=== PATIENT | female | born 1995 | race Native Hawaiian/Other Pacific Islander ===

== ENCOUNTER 2019-12-26 10:00 | Inpatient (IN) | payer MEDICAID ==
[~2019-12-26] VITALS: Ht 30.5 cm; Wt 0.5 kg
[~2019-12-26 10:00] MED LIST: PREN-96 PO
[2019-12-26] MEDS ORDERED: LACT. RINGERS/OXYTOCIN 20UNITS 1,000 ML IV SCH (10:24)
[2019-12-26] MEDS ORDERED: LACTATED RINGER'S 1,000 ML IV SCH (10:24)
[2019-12-26] MEDS ORDERED: LIDOCAINE 2%HCL (LOCAL ANESTH.) INJ 20ML MDV ID PRN (10:30)
[2019-12-26] MEDS ORDERED: PHISODERM TOP SOLN 240ML BTL TOP PRN (10:30)
[2019-12-26] MEDS ORDERED: WITCH HAZEL-GLYCERIN PAD TOP PRN (10:30)
[2019-12-26] MEDS ORDERED: DERMOPLAST 60ML BOTTLE TOP PRN (10:30)
[2019-12-26] MEDS ORDERED: PENICILLIN G POT 5MIL/D5 50ML 50 ML IV ONE (10:30)
[2019-12-26] MEDS ORDERED: NALBUPHINE HCL 10 MG/1ml INJECTION IV PRN (10:30)
[2019-12-26 11:28] LABS: Basophils # (auto) 0 10 ^3/uL (0-0.2); Basophils % (auto) 0.2 % (0.0-2.0); Eosinophils # (auto) 0 10 ^3/uL (0-0.8); Eosinophils % (auto) 0.3 % (0.0-7.0); Hematocrit 41.9 % (36.0-46.0); Hemoglobin 13.8 g/dL (12.2-16.2); Lymphocytes # (auto) 1.4 10 ^3/uL (0.4-5.4); Lymphocytes % (auto) 11.7 % (10.0-50.0); Mean Corpuscular Hemoglobin 30.7 pg (28.0-32.0); Mean Corpuscular Volume 92.9 fL (80.0-100.0); Monocytes # (auto) 0.6 10 ^3/uL (0-1.3); Monocytes % (auto) 4.9 % (0.0-12.0); Neutrophils # (auto) 9.6 10 ^3/uL (1.6-8.6); Neutrophils % (auto) 82.9 % (37.0-80.0); Nucleated Red Blood Cells % 0.1 %; Platelet Count (auto) 223 10^3/uL (140-450); Red Blood Cells 4.51 10^6/uL (4.0-5.20); White Blood Cell 11.5 10^3/uL (4.4-10.8)
[2019-12-26 11:42] LABS: INR 0.89 (0.9-1.15); Partial Thromboplastin Time 27.1 sec (23.0-31.2)
[2019-12-26 11:45] LABS: Calcium 9.5 mg/dL (8.5-10.1); Potassium 3.9 mmol/L (3.5-5.1)
[2019-12-26 11:51] LABS: Albumin 3.1 g/dL (3.4-5.0); BUN/Creatinine Ratio 20.3; Bilirubin, Total 0.3 mg/dL (0.2-1.0); Uric Acid 5.2 mg/dL (2.6-6.0)
[2019-12-26 12:23] LABS: Urine Bacteria NONE SEEN /hpf (None Seen); Urine Blood Negative /uL (Negative); Urine Mucus FEW (None Seen); Urine Specific Gravity 1.026 (1.001-1.035); Urine WBC 1 /hpf (0 - 5)
[2019-12-26 12:31] LABS: Alcohol, Urine < 3.0 mg/dL (0-10); Amphetamine Screen, Urine NEGATIVE (NEGATIVE); Barbiturate Scree,Urine NEGATIVE (NEGATIVE); Benzodiazephine Screen, Urine NEGATIVE (NEGATIVE); Cannabinoid Screen, Urine NEGATIVE (NEGATIVE); Cocaine Screen, Urine NEGATIVE (NEGATIVE); Opiate Scree,Urine NEGATIVE (NEGATIVE); Phencyclidine Screen, Urine NEGATIVE (NEGATIVE)
[2019-12-26] MEDS: IBUPROFEN 600 MG TAB PO PRN ×2 (14:21→18:58)
[2019-12-26] MEDS ORDERED: PENICILLIN G POTASSIUM 2,500,000 UNITS in D5W 5% 50 ML IV SCH (14:30)
--- NOTE | 2019-12-26 15:00 | NUR ---
Patient ambulated with standby assist of RN to bathroom. On pad small amount of bright red blood, no clots noted. Educated on pericare. Verbalized understanding. Demonstrated proper technique. Partial bath given. Patient unable to void at this time. Educated on need to call for assistance for next two voids. Verbalized understanding. New gown given. Complete linen change on bed. Patient ambulated to restroom with standby assist. Tolerated well. No distress noted. Vital signs taken, see interventions. Cumulative QBL 150ml.
[2019-12-26 15:07] VITALS: BP 114/56
--- NOTE | 2019-12-26 16:00 | NUR ---
Fundal massage performed. Firm with massage. Moderate amount of blood noted upon massage. Bleeding stopped after massage. Assisted patient to bathroom. Patient able to void 100ml clear yellow urine without difficulty. Pericare performed. Ambulated back to bathroom with steady gait. Standby assist of BITA. Denies headache, blurred vision, dizziness, weakness, diaphoresis or lightheadedness. Encouraged oral hydration. BP 118/58 HR 74. Pain 0/10 Addendum: 12/26/19 at 1632 by LAXMI MAGAÑA RN peripad, underwear weighed. 100ml.
--- NOTE | 2019-12-26 16:40 | NUR ---
Dr Jessica called. Informed of bleeding noted of 100ml with fundal massage and 50ml noted in hat before void. Total of 150ml. Verbalized understanding. Received orders for cytotec 200mcg once, and cytotec 600mcg NH once.
[2019-12-26] MEDS ORDERED: miSOPROStol 50 MCG per PRE-CUT 1/2 TAB SL ONE (16:45)
[2019-12-26] MEDS ORDERED: miSOPROStol 100 mcg TAB ONE (16:57)
[2019-12-26] MEDS ORDERED: miSOPROStol 50 MCG per PRE-CUT 1/2 TAB PR ONE (17:00)
--- NOTE | 2019-12-26 17:00 | NUR ---
Cytotec order: Pharmacy called regarding need for 100mcg tabs not 50mcg tablets (50mcg tablets are for inductions, this order is for increased bleeding). Stated they are unable to change the order at this time. Override performed, administered medication as ordered with 100mcg tablets. Unable to place not under emar due to no administration note tab available.
[2019-12-26 18:30] VITALS: BP 117/55
--- NOTE | 2019-12-26 23:10 | NUR ---
Lawrence Palm CNM at nurses station SBAR given including H&H, EBL/ EBL Verbal orders received for repeat H& H for 0200 on 12/27/19
[2019-12-26 23:15] VITALS: BP 100/57
[2019-12-27 03:05] LABS: Hematocrit 36.5 % (36.0-46.0); Hemoglobin 12.3 g/dL (12.2-16.2)
[2019-12-27 03:30] VITALS: BP 102/57
[2019-12-27 07:15] VITALS: BP 116/77
--- NOTE | 2019-12-27 08:02 | NUR ---
Fundal massage performed. Large softball size clot measuring 50mL noted after fundal massage. BP 116/77 HR 75, denies headache, blurred vision, dizziness, fatigue, diaphoresis, coloring appropriate. Dr Minor called. Informed of above information. Verbalized understanding. Stated to monitor and keep patient today. No discharge until tomorrow. Addendum: 12/27/19 at 0806 by LAXMI MAGAÑA RN Amended: Links added.
[2019-12-27 11:00] VITALS: BP 138/77
[2019-12-27 15:30] VITALS: BP 128/63
[2019-12-27 19:25] VITALS: BP 116/52
--- NOTE | 2019-12-27 19:30 | NUR ---
Abdiel BHATIA CNM AT BEDSIDE. FULL SBAR GIVEN, ASSESSMENT COMPLETED BY CNM, ORDERS RECEIVED TO DC PT HOME AT THIS TIME.
--- NOTE | 2019-12-27 20:16 | NUR ---
Discharge: Discharge instructions given as ordered. Pt encouraged to follow up with [facility] as instructed. All questions and concerns addressed. Patient verbalized understanding. Medication reconciliation completed and copy given to patient. All required/requested vaccines given and copies of vaccinations given to patient. Patient encouraged to prepare to depart unit.
--- NOTE | 2019-12-27 20:27 | NUR ---
IV removal IV DC'd for dc home with clean sterile technique, catheter fully intact. Pressure dressing applied to site. Patient tolerated well.
--- NOTE | 2019-12-27 20:47 | NUR ---
Discharge: Patient taken to vehicle via steady ambulation with all personal belongings, accompanied by staff and family member. No distress noted at time of departure, no adverse changes in status since initial assessment.
[2019-12-28 07:06] LABS: RPR Non Reactive (Non Reactive)
[2019-12-28 08:06] LABS: Rubella Antibodies, IgG 2.89 index (Immune >0.99)
== END 2019-12-27 20:47 | disposition home or self-care (01) | DRG 560 ==
LOC: LDRP 10:00 → OBSVTOIN 10:10 → LDRP 12-27 08:56
PROVIDERS: ADMIT Specialist; ATTEND Specialist
PROC: 10E0XZZ Delivery of Products of Conception, External Approach (ICD-10-PCS; principal; 2019-12-26)
PROC: 0UQGXZZ Repair Vagina, External Approach (ICD-10-PCS; 2019-12-26)
DX: O77.0 Labor and delivery complicated by meconium in amniotic fluid (principal); Z37.0 Single live birth; Z3A.39 39 weeks gestation of pregnancy; O71.4 Obstetric high vaginal laceration alone
CPT/HCPCS: 36415; 59025; 59409; 80053; 80307; 81001; 81002; 84112; 84550; 85014; 85018; 85025; 85610; 85730; 86592; 86703; 86762; 86850; 86900; 86901; 87340; 96365; 96366; G0378; J2590; J7060

== ENCOUNTER 2021-05-22 08:46 | Emergency (ER) | payer MEDICAID ==
[~2021-05-22] VITALS: Ht 157.5 cm; Wt 60.3 kg
[2021-05-22 08:51] VITALS: BP 102/55
== END 2021-05-22 13:44 | disposition left against medical advice (07) ==
LOC: ER 08:46
DX: O26.892 Other specified pregnancy related conditions, second trimester (principal); A53.9 Syphilis, unspecified; Z3A.19 19 weeks gestation of pregnancy

== ENCOUNTER 2021-05-23 18:04 | Emergency (ER) | payer MEDICAID ==
[~2021-05-23] VITALS: Ht 157.5 cm; Wt 60.3 kg
[2021-05-23 18:45] VITALS: BP 108/54
[2021-05-23] MEDS ORDERED: PENICILLIN G BENZ 1200000 UNITS/2 ML SYRG IM ONE (21:30)
== END 2021-05-23 22:01 | disposition home or self-care (01) ==
LOC: ER 18:05
DX: O98.112 Syphilis complicating pregnancy, second trimester (principal); A53.0 Latent syphilis, unspecified as early or late; Z3A.19 19 weeks gestation of pregnancy
CPT/HCPCS: 96372; 99283; J0561

== ENCOUNTER 2021-05-30 17:11 | Emergency (ER) | payer MEDICAID ==
[~2021-05-30] VITALS: Ht 157.5 cm; Wt 59.0 kg
[2021-05-30] MEDS ORDERED: PENICILLIN G BENZ 1200000 UNITS/2 ML SYRG IM ONE (17:45)
[2021-05-30 17:48] VITALS: BP 109/79
== END 2021-05-30 18:21 | disposition home or self-care (01) ==
LOC: ER 17:13
DX: O98.112 Syphilis complicating pregnancy, second trimester (principal); Z79.899 Other long term (current) drug therapy; Z3A.20 20 weeks gestation of pregnancy
CPT/HCPCS: 96372; 99283; J0561

== ENCOUNTER 2021-06-06 17:50 | Emergency (ER) | payer MEDICAID ==
[~2021-06-06] VITALS: Ht 157.5 cm; Wt 59.0 kg
[2021-06-06 18:12] VITALS: BP 107/63
[2021-06-06] MEDS ORDERED: PENICILLIN G BENZ 1200000 UNITS/2 ML SYRG IM ONE (19:15)
== END 2021-06-06 19:14 | disposition home or self-care (01) ==
LOC: ER 18:05
DX: O98.119 Syphilis complicating pregnancy, unspecified trimester (principal); Z79.899 Other long term (current) drug therapy; Z3A.00 Weeks of gestation of pregnancy not specified
CPT/HCPCS: 96372; 99283; J0561

== ENCOUNTER 2021-09-12 10:20 | Observation (INO) | payer MEDICAID ==
[~2021-09-12] VITALS: Ht 162.6 cm; Wt 59.0 kg
[2021-09-12] MEDS ORDERED: TERBUTALINE SULFATE 1 MG/ML 1ML VIAL SC SCH (11:30)
[2021-09-12] MEDS ORDERED: BETAMETHASONE ACET (30mg/5ml) 5ml Vial 6mg/ml IM ONE (11:30)
[2021-09-12] MEDS ORDERED: NIF10C PO (12:25)
== END 2021-09-12 12:44 | disposition home or self-care (01) ==
LOC: LDRP 10:20
PROVIDERS: ADMIT Obstetrics & Gynecology; ATTEND Obstetrics & Gynecology
DX: O60.03 Preterm labor without delivery, third trimester (principal); Z3A.35 35 weeks gestation of pregnancy
CPT/HCPCS: 59025; 81002; 94760; 96372; G0378; J0702; J3105

== ENCOUNTER 2021-09-13 11:15 | Observation (INO) | payer MEDICAID ==
[~2021-09-13] VITALS: Ht 167.6 cm; Wt 63.0 kg
[~2021-09-13 11:15] MED LIST changes: +NIF10C PO
[2021-09-13] MEDS ORDERED: BETAMETHASONE ACET (30mg/5ml) 5ml Vial 6mg/ml IM ONE (12:45)
[2021-09-13] MEDS ORDERED: NIFEdipine 10 MG CAP PO ONE (13:30)
== END 2021-09-13 14:37 | disposition home or self-care (01) ==
LOC: LDRP 12:30
PROVIDERS: ADMIT Obstetrics & Gynecology; ATTEND Obstetrics & Gynecology
DX: O60.03 Preterm labor without delivery, third trimester (principal); O26.893 Other specified pregnancy related conditions, third trimester; R10.30 Lower abdominal pain, unspecified; O62.9 Abnormality of forces of labor, unspecified; Z3A.35 35 weeks gestation of pregnancy
CPT/HCPCS: 59025; 81002; 96372; G0378

== ENCOUNTER 2021-09-19 09:18 | Observation (INO) | payer MEDICAID | END 2021-09-19 12:53 | disposition home or self-care (01) | LOC: LDRP 12:16 | PROVIDERS: ADMIT Obstetrics & Gynecology; ATTEND Obstetrics & Gynecology | DX: O60.03 Preterm labor without delivery, third trimester (principal); O62.9 Abnormality of forces of labor, unspecified; O26.893 Other specified pregnancy related conditions, third trimester; N89.8 Other specified noninflammatory disorders of vagina; Z3A.36 36 weeks gestation of pregnancy | CPT/HCPCS: 59025; 81002; G0378 ==

== ENCOUNTER 2021-09-26 15:00 | Observation (INO) | payer MEDICAID ==
[~2021-09-26 15:00] MED LIST changes: -NIF10C PO
== END 2021-09-26 19:02 | disposition home or self-care (01) ==
LOC: LDRP 15:00
PROVIDERS: ADMIT Obstetrics & Gynecology; ATTEND Obstetrics & Gynecology
DX: O62.9 Abnormality of forces of labor, unspecified (principal); O34.63 Maternal care for abnormality of vagina, third trimester; N89.8 Other specified noninflammatory disorders of vagina; Z3A.37 37 weeks gestation of pregnancy
CPT/HCPCS: 59025; 76818; 81002; 94760; G0378

== ENCOUNTER 2021-09-27 10:40 | Inpatient (IN) | payer MEDICAID ==
[~2021-09-27] VITALS: Ht 157.5 cm; Wt 63.5 kg
[2021-09-27] MEDS ORDERED: LACT. RINGERS/OXYTOCIN 20UNITS 500 ML IV ONE ×2 (11:00→11:30)
[2021-09-27] MEDS ORDERED: PROMETHAZINE HCL 25 MG/ML 1ML IV PRN (11:00)
[2021-09-27] MEDS ORDERED: LACTATED RINGER'S 1,000 ML IV SCH (11:00)
[2021-09-27] MEDS ORDERED: DERMOPLAST 60ML BOTTLE TOP PRN (11:00)
[2021-09-27] MEDS ORDERED: BUTORPHANOL TARTRATE 2 MG/1 ML VIAL IV PRN ×2 (11:00)
[2021-09-27] MEDS ORDERED: LIDOCAINE 2%HCL (LOCAL ANESTH.) INJ 10ml MDV IJ PRN (11:00)
[2021-09-27] MEDS ORDERED: WITCH HAZEL-GLYCERIN PAD TOP PRN (11:00)
[2021-09-27] MEDS ORDERED: PHISODERM TOP SOLN 240ML BTL TOP PRN (11:00)
[2021-09-27 11:23] LABS: Basophils # (auto) 0.1 10 ^3/uL (0-0.2); Basophils % (auto) 0.8 % (0.0-2.0); Eosinophils # (auto) 0.1 10 ^3/uL (0-0.8); Eosinophils % (auto) 0.4 % (0.0-7.0); Hematocrit 40.1 % (36.0-46.0); Hemoglobin 13.3 g/dL (12.2-16.2); Lymphocytes # (auto) 2.3 10 ^3/uL (0.4-5.4); Lymphocytes % (auto) 17.9 % (10.0-50.0); Mean Corpuscular Hgb Conc. 33.1 g/dL (32.0-36.0); Mean Corpuscular Volume 87.5 fL (80.0-100.0); Monocytes # (auto) 0.7 10 ^3/uL (0-1.3); Monocytes % (auto) 5.3 % (0.0-12.0); Neutrophils # (auto) 9.9 10 ^3/uL (1.6-8.6); Neutrophils % (auto) 75.6 % (37.0-80.0); Red Blood Cells 4.58 10^6/uL (4.0-5.20); Red Cell Distribution Width 13.6 % (11.8-14.3); White Blood Cell 13.1 10^3/uL (4.4-10.8)
[2021-09-27 11:43] LABS: INR 0.9 (0.9-1.15); Partial Thromboplastin Time 26.8 sec (23.6-33.0)
[2021-09-27 11:47] LABS: Urine Bacteria NONE SEEN /hpf (None Seen); Urine Blood Negative /uL (Negative); Urine Mucus FEW (None Seen); Urine Specific Gravity 1.018 (1.001-1.035); Urine WBC 1 /hpf (0 - 5)
[2021-09-27 11:55] LABS: Albumin 2.8 g/dL (3.4-5.0); BUN/Creatinine Ratio 11.1; Calcium 9.4 mg/dL (8.5-10.1); Potassium 4.1 mmol/L (3.5-5.1)
[2021-09-27 11:57] LABS: Amphetamine Screen, Urine NEGATIVE (NEGATIVE); Barbiturate Scree,Urine NEGATIVE (NEGATIVE); Benzodiazephine Screen, Urine NEGATIVE (NEGATIVE); Cannabinoid Screen, Urine NEGATIVE (NEGATIVE); Cocaine Screen, Urine NEGATIVE (NEGATIVE); Opiate Scree,Urine NEGATIVE (NEGATIVE); Phencyclidine Screen, Urine NEGATIVE (NEGATIVE)
[2021-09-27 12:00] LABS: Bilirubin, Total 0.2 mg/dL (0.2-1.0); Total Protein 6.8 g/dL (6.4-8.2)
[2021-09-27] MEDS ORDERED: ACETAMINOPHEN 325 MG TAB PO PRN (12:45)
[2021-09-27] MEDS ORDERED: ONDANSETRON ODT 4 MG TAB PO PRN (12:45)
[2021-09-27] MEDS ORDERED: IBUPROFEN 600 MG TAB PO PRN (12:45)
[2021-09-27] MEDS ORDERED: METHYLERGONOVINE MALEATE 0.2 MG/ML AMP IM PRN (13:00)
[2021-09-27] MEDS ORDERED: miSOPROStol 100 mcg TAB ONE (13:11)
[2021-09-27] MEDS ORDERED: miSOPROStol 100 mcg TAB SL PRN (13:15)
[2021-09-27] MEDS ORDERED: miSOPROStol 100 mcg TAB PR PRN (13:15)
[2021-09-27] MEDS ORDERED: CARBOPROST TROMETHAMINE 250 MCG/1ML VIAL IM ONE (13:21)
[2021-09-27] MEDS ORDERED: LACT. RINGERS/OXYTOCIN 20UNITS 1,000 ML IV SCH (13:30)
[2021-09-27] MEDS ORDERED: CARBOPROST TROMETHAMINE 250 MCG/1ML VIAL IM PRN (13:30)
[2021-09-27] MEDS ORDERED: DIPHENOXYLATE W/ATROPINE 2.5 MG TAB PO ONE (13:45)
[2021-09-27] MEDS ORDERED: MORPHINE SULFATE INJECTION 2 MG/ML SYRG IV ONE (13:45)
[2021-09-27 13:49] LABS: Alcohol, Urine < 3.0 mg/dL (0-10)
[2021-09-27] MEDS ORDERED: KETOROLAC TROMETH 30 MG/ML 1ML VIAL IV ONE (14:45)
[2021-09-27] MEDS ORDERED: ceFAZolin 2 GM in D5W 5% 100 ML IV ONE (14:45)
[2021-09-27 15:30] VITALS: BP 121/74
[2021-09-27 16:00] VITALS: BP 121/76
[2021-09-27 16:30] VITALS: BP 122/74
[2021-09-27] MEDS ORDERED: OXYTOCIN 10UNIT/ML 1ML VIAL IV ONE (17:42)
[2021-09-27 19:00] VITALS: BP 111/55
[2021-09-27] MEDS: ceFAZolin 1GM/50ML 50 ML IV SCH (22:27)
[2021-09-27 22:30] VITALS: BP 112/57
[2021-09-28 03:25] VITALS: BP 102/53
[2021-09-28] MEDS: ceFAZolin 1GM/50ML 50 ML IV SCH (05:59)
[2021-09-28 07:07] LABS: RPR Non Reactive (Non Reactive)
[2021-09-28 07:30] VITALS: BP 111/71
[2021-09-28 12:00] VITALS: BP 101/56
[2021-09-28 14:30] VITALS: BP 95/57
[2021-09-28 16:23] VITALS: BP 95/57
== END 2021-09-28 18:05 | disposition home or self-care (01) | DRG 560 ==
LOC: LDRP 10:40 → OBSVTOIN 10:53
PROVIDERS: ADMIT Obstetrics & Gynecology; ATTEND Obstetrics & Gynecology
PROC: 10E0XZZ Delivery of Products of Conception, External Approach (ICD-10-PCS; principal; 2021-09-27)
DX: O69.81X0 Labor and delivery complicated by cord around neck, without compression, not applicable or unspecified (principal); Z37.0 Single live birth; O72.1 Other immediate postpartum hemorrhage; Z20.822 Contact with and (suspected) exposure to COVID-19; Z3A.37 37 weeks gestation of pregnancy
CPT/HCPCS: 36415; 59025; 59409; 80053; 80307; 81001; 85025; 85610; 85730; 86592; 86850; 86900; 86901; 94760; 96360; 96361; 96365; 96366; 96372; 96374; 96375; G0378; J0690; J1885; J2001; J2590; J7060

== ENCOUNTER 2021-11-28 06:23 | Day surgery (SDC) | payer MEDICAID ==
[2021-11-27 09:14] LABS: Basophils # (auto) 0.1 10 ^3/uL (0-0.2); Eosinophils # (auto) 0.2 10 ^3/uL (0-0.8); Eosinophils % (auto) 4.1 % (0.0-7.0); Hematocrit 41.3 % (36.0-46.0); Hemoglobin 13.2 g/dL (12.2-16.2); Lymphocytes # (auto) 2.1 10 ^3/uL (0.4-5.4); Lymphocytes % (auto) 40.2 % (10.0-50.0); Mean Corpuscular Hemoglobin 27.3 pg (28.0-32.0); Mean Corpuscular Hgb Conc. 31.9 g/dL (32.0-36.0); Mean Corpuscular Volume 85.8 fL (80.0-100.0); Monocytes # (auto) 0.3 10 ^3/uL (0-1.3); Monocytes % (auto) 4.8 % (0.0-12.0); Neutrophils # (auto) 2.6 10 ^3/uL (1.6-8.6); Neutrophils % (auto) 49.9 % (37.0-80.0); Nucleated Red Blood Cells % 0.1 %; Red Blood Cells 4.81 10^6/uL (4.0-5.20); Red Cell Distribution Width 14.4 % (11.8-14.3); White Blood Cell 5.3 10^3/uL (4.4-10.8)
[2021-11-27 09:19] LABS: Urine Bacteria NONE SEEN /hpf (None Seen); Urine Blood Negative /uL (Negative); Urine Mucus FEW (None Seen); Urine Specific Gravity 1.031 (1.001-1.035); Urine WBC 17 /hpf (0 - 5)
[2021-11-27 09:32] LABS: INR 0.97 (0.9-1.15); Partial Thromboplastin Time 27.3 sec (24.6-33.4)
[2021-11-27 09:34] LABS: Potassium 4.4 mmol/L (3.5-5.1)
[2021-11-27 09:39] LABS: Albumin 4.3 g/dL (3.4-5.0); BUN/Creatinine Ratio 20.5; Calcium 9.4 mg/dL (8.5-10.1)
[2021-11-27 09:42] LABS: Bilirubin, Total 0.4 mg/dL (0.2-1.0); Total Protein 7.7 g/dL (6.4-8.2)
[~2021-11-28] VITALS: Ht 160 cm; Wt 60.3 kg
[2021-11-28] MEDS ORDERED: PHENYLEPHRINE HCL 10 MG/ML VL IV ONE (06:24)
[2021-11-28] MEDS ORDERED: ceFAZolin 1GM/50ML 100 ML IV ONE (06:49)
[2021-11-28] MEDS ORDERED: IBUP800T27 PO (07:04)
[2021-11-28] MEDS ORDERED: ONDA-144 PO (07:04)
[2021-11-28] MEDS ORDERED: HYDR-4902 PO (07:04)
[2021-11-28] MEDS ORDERED: MIDAZOLAM HCL 2MG/2ML 2ml VIAL (1mg/ml) ONE (07:13)
[2021-11-28] MEDS ORDERED: MEPERIDINE HCL (50 MG/ML) 1 ML VIAL ONE (07:13)
[2021-11-28] MEDS ORDERED: fentaNYL CITRATE 100 MCG/2 ML VL ONE (07:13)
[2021-11-28] MEDS ORDERED: ROCURONIUM 10MG/ML 10ML VIAL IV ONE ×2 (07:44→07:45)
[2021-11-28] MEDS ORDERED: PROPOFOL 10 MG/ML 20 ML IV ONE (07:44)
[2021-11-28] MEDS ORDERED: DexAMETHasone SOD PHOS 10MG/1ML VIAL INJ ONE (07:44)
[2021-11-28] MEDS ORDERED: MORPHINE SULFATE 4 MG/ML SYR/VIAL IV PRN (07:45)
[2021-11-28] MEDS ORDERED: LABETALOL HCL 5 MG/ML 4ML SYRINGE IV PRN (07:45)
[2021-11-28] MEDS ORDERED: ONDANSETRON HCL 4 MG/2 ML VIAL IV PRN ×2 (07:45→08:00)
[2021-11-28] MEDS ORDERED: ePHEDrine SULFATE 50 MG/ML AMP IV PRN (07:45)
[2021-11-28] MEDS ORDERED: LACTATED RINGER'S 1,000 ML IV SCH (08:00)
[2021-11-28] MEDS ORDERED: SUGAMMADEX 200mg/2ml Vial (100MG/ML) IV ONE (08:08)
[2021-11-28] MEDS: HYDROmorphone HCL 2 MG/ML VL/or syr IV PRN ×2 (08:30→09:00)
[2021-11-28] MEDS ORDERED: THROAT LOZENGES(CEPASTAT) MT ONE (08:45)
[2021-11-28] MEDS: MIDAZOLAM HCL 2MG/2ML 2ml VIAL (1mg/ml) IV PRN ×2 (09:10→09:20)
[2021-11-28] MEDS ORDERED: LIDOCAINE VISCOUS 2% 15ML UD ONE (09:25)
[2021-11-28] MEDS ORDERED: LIDOCAINE VISCOUS 2% 15ML UD MT PRN (09:30)
[2021-11-28 10:20] VITALS: BP 111/74
== END 2021-11-28 10:31 | disposition home or self-care (01) ==
LOC: SUR 06:23
PROVIDERS: ATTEND Obstetrics & Gynecology
DX: Z30.2 Encounter for sterilization (principal); Z20.822 Contact with and (suspected) exposure to COVID-19
CPT/HCPCS: 36415; 58671; 80053; 81001; 81025; 84702; 85025; 85610; 85730; 86850; 86900; 86901; J0690; J1100; J1170; J2175; J2250; J2370; J2704; J3010; U0003

== ENCOUNTER 2025-05-02 10:37 | Day surgery (SDC) | payer MEDICAID ==
[2025-04-26 10:28] LABS: Hematocrit 36.7 % (36.0-46.0); Hemoglobin 12.4 g/dL (12.2-16.2); Mean Corpuscular Hemoglobin 30.4 pg (28.0-32.0); Mean Corpuscular Volume 89.7 fL (80.0-100.0); Nucleated Red Blood Cells % 0.1 %
[2025-04-26 10:44] LABS: Urine Protein, UAD TRACE (Negative)
[2025-04-26 10:46] LABS: INR 1.06 (0.9-1.15); Partial Thromboplastin Time 24.8 SEC (24.5-34.5); Prothrombin Time 11.2 sec (9.3-11.8)
[2025-04-26 11:00] LABS: Alanine Aminotransferase 19 U/L (7-40); Albumin 4.5 g/dL (3.2-4.8); Alkaline Phosphatase 58 U/L (46-116); Anion Gap 11 (5-15); BUN/Creatinine Ratio 21.1 (10.0-20.0); Bilirubin, Total 0.5 mg/dL (0.2-1.0); Blood Urea Nitrogen 19 mg/dL (9-23); Calcium 9.7 mg/dL (8.7-10.4); Carbon Dioxide 23 mmol/L (20-31); Glucose 91 mg/dL (74-106); Potassium 3.7 mmol/L (3.5-5.1); Sodium 142 mmol/L (136-145); Total Protein 7.1 g/dL (5.7-8.2)
[2025-04-26 11:07] LABS: Chloride 108 mmol/L (98-107)
[~2025-05-02] VITALS: Ht 157.5 cm; Wt 62.6 kg
[2025-05-02] MEDS ORDERED: MIDAZOLAM HCL 2MG/2ML 2ml VIAL (1mg/ml) ONE (11:45)
[2025-05-02] MEDS ORDERED: MEPERIDINE HCL (25 MG/ML) 1ML VIAL ONE ×2 (11:45→12:01)
[2025-05-02] MEDS ORDERED: fentaNYL CITRATE 100 MCG/2 ML VL ONE (11:45)
[2025-05-02] MEDS ORDERED: ONDANSETRON HCL 4 MG/2 ML VIAL ONE (11:45)
[2025-05-02] MEDS ORDERED: PROPOFOL 10 MG/ML 20 ML IV ONE (11:45)
[2025-05-02] MEDS ORDERED: LIDOCAINE 1% INJ PF 5ML AMP ONE (11:45)
[2025-05-02] MEDS ORDERED: KETAMINE 50mg/ML 1ml syringe ONE (11:45)
[2025-05-02] MEDS ORDERED: BUPIVACAINE HCL 50 ML ONE (11:51)
[2025-05-02] MEDS: ceFAZolin 2 GM/D5W50ml 50 ML IV ONE (12:01)
[2025-05-02 12:59] VITALS: PULSE 83; RESP 10; TEMP 97.7; O2SAT 100
--- NOTE | 2025-05-02 13:06 | DVHOP2 ---
Operative Report - 2 Report Details Date: 05/02/25 Preop Diagnosis: 1. Left fibular sesamoid fracture 2. Left foot pain Postop Diagnosis: Same as preop Surgeon: Phillip Alfaro MD Anesthesiologist: See anesthesia Anesthesia: General Consent: The patient was informed of the risks and benefits of the procedure. These inclu de but are not limited to complications of anesthesia, postoperative infection, incomplete relief of symptoms, recurrence of symptoms, damage to blood vessels, nerves and tendons, deep venous thrombosis, pulmonary embolism and possible need for repeat surgery in the future. Complications: None Estimated Blood Loss: Minimal Fluids: See anesthesia Findings: Consistent with diagnosis Indications for Surgery: Worse in the for pain Name of Procedure Performed 1. Left fibular sesamoid excision (98392) 2. Left foot capsoulotomy (69678) Procedure Details Procedure Details: PRE-PROCEDURE INFORMATION: In the pre-op holding area, the extremity to be operated on was clearly marked and the patient verified correct laterality of the marking. The patient was transferred to the OR table and placed in a supine position. A timeout was performed in which identification of the correct patient, procedure, location, and materials was done. The right foot and leg were prepped and draped in normal sterile fashion. The foot and leg were exsanguinated and the thigh tourniquet was inflated to 250 mmHg. DESCRIPTION OF PROCEDURE: Attention was directed to the right foot where linear incision was made at the dorsal 1st interspace. Care was taken throughout the dissection to avoid damage to the neurovascular and tendinous structures. Hemostasis was achieved via electrocautery. The incision was deepened through blunt dissection to the level of the lateral capsule. A capsulotomy was then performed excision of the capsule to allow for adequate vision of the fibular sesamoid. After the fibular sesamoid was identified, using sharp instrumentation and electrocautery, the fibular sesamoid was removed in its entirety. The capsule then was repaired with 2-0 Vicryl. The subcutaneous tissue was closed with 3-0 Monocryl and skin closed with 4-0 nylon in a horizontal mattress. All surgical wounds were irrigated copiously with saline and closed in layers with the aforementioned suture material. A dry sterile dressing was placed on the surgical extremity. The patient was placed in a cam boot POSTOPERATIVE INFORMATION: The patient tolerated the above noted procedure and anesthesia well and was transferred to the PACU with vital signs stable, and vascular status intact with capillary refill intact to all digits. Postoperative instructions reviewed in detail with the patient with written instructions provided. Patient will return to clinic in approximately 10-14 days for first postoperative visit. Patient has the number of the clinic and was instructed to call prior to that time should any problems, questions, or concerns arise. Condition Good Disposition Home Visit Coding Podiatry Date of Service if different f: May 02, 2025 Billing Provider: PHILLIP ALFARO DPM Podiatry Common Visit Codes: PROCEDURE ONLY PHILLIP ALFARO DPM May 02, 2025 13:06
[2025-05-02] MEDS ORDERED: METOCLOPRAMIDE HCL 5MG/ml INJ 2ml VIAL IV PRN (13:45)
[2025-05-02] MEDS ORDERED: MORPHINE SULFATE 4 MG/ML SYR/VIAL IV PRN ×2 (13:45)
[2025-05-02] MEDS ORDERED: HYDROmorphone HCL 2 MG/ML VL/or syr IV PRN ×2 (13:45)
[2025-05-02] MEDS: KETOROLAC TROMETH 30 MG/ML 1ML VIAL IV ONE (13:45)
[2025-05-02] MEDS ORDERED: KETOROLAC TROMETH 30 MG/ML 1ML VIAL IV ONE (13:45)
[2025-05-02] MEDS: METOCLOPRAMIDE HCL 5MG/ml INJ 2ml VIAL IV ONE (13:50)
[2025-05-02 14:30] VITALS: BP 102/69; PULSE 70; RESP 15; O2SAT 98
== END 2025-05-02 14:38 | disposition home or self-care (01) ==
LOC: SUR 10:37
PROVIDERS: ATTEND Podiatrist
DX: S82.492A Other fracture of shaft of left fibula, initial encounter for closed fracture (principal); Z86.2 Personal history of diseases of the blood and blood-forming organs and certain disorders involving the immune mechanism; Z98.51 Tubal ligation status; X58.XXXA Exposure to other specified factors, initial encounter; Y93.89 Activity, other specified; Y92.89 Other specified places as the place of occurrence of the external cause; Y99.8 Other external cause status
CPT/HCPCS: 28315; 36415; 80053; 81001; 81025; 85025; 85610; 85730; J0690; J1885; J2175; J2250; J2405; J2704; J2765; J3010; J3490